=== PATIENT | female | born 1975 | race Caucasian/White ===

== ENCOUNTER 2023-05-13 08:34 | Outpatient (CLI) | payer OTHER, SELFPAY | END 2023-05-13 08:35 | disposition home or self-care (01) | PROVIDERS: PCP Physician Assistant Medical; Visit Provider Physician Assistant Medical | DX: M54.9 Dorsalgia, unspecified (principal); D50.9 Iron deficiency anemia, unspecified; M54.2 Cervicalgia | CPT/HCPCS: 82607; 84443 ==

== ENCOUNTER 2023-05-21 12:49 | Outpatient (CLI) | payer OTHER, SELFPAY ==
--- OUTSIDE RECORDS SUMMARY | 2023-05-21 12:53 | XMS_ITS | Clinical Summary ---
Author Name Unknown Organization [place] Address [address] [place] [address] Care Team Providers Care Bonding Agent Name Role Phone Robel Shah MD Unavailable Herbert Gaitan MD Primary Care Provider [phone] Allergies Active Allergy Reactions Criticality Noted Date Comments Fish Oil 04/30/2020 Other reaction(s): itching Medications Medication Sig Dispensed Refills Start Date End Date Status Yywznksiju-CCAR-Jyxlx ine 50-300-40 MG CAPS Take 1 capsule by mouth 0 07/22/2020 Active cyclobenzaprine (FLEXERIL) 5 MG tablet Take 5 mg by mouth 3 times daily as needed for muscle spasms 0 Active citalopram (CELEXA) 20 MG tabletIndications:Epi sodic tension-type headache, not intractable Take 2 tablets (40 mg) by mouth daily 30 tablet 11 08/20/2020 Active Active Problems Problem Noted Date Diagnosed Date Episodic tension-type headache, not intractable 08/20/2020 Exercise-induced asthma 08/06/2020 Generalized anxiety disorder 08/06/2020 Major depression, single epi sode, in complete remission (H24) 08/06/2020 Family History Medical History Relation Comments Hypertension Mother Myocardial Infarction Mother Relation Status Comments Mother Social History Tobacco Use Types Packs/Day Years Used Date Smoking Tobacco: Every Day Cigarettes 0.5 Smokeless Tobacco: Never Alcohol Use Standard Drinks/Week Comments Yes 0 (1 standard drink = 0.6 oz pur e alcohol) AUDIT-C Answer Date Recorded Q1: How often do you have a drink containing alc ohol? 2-3 times a week 08/06/2020 Q2: How many drinks containi ng alcohol do you have on a typical day when you are drinking? 1 or 2 08/06/2020 Q3: How often do you have si x or more drinks on one occasion? Not asked 08/06/2020 Adolescent Education Answer Date Record ed Getting School Help Needed Not on file 01/31 Sex and Gender Information Value Date Recorded Sex Assigned at Not on file Gender Identity Not on file Sexual Orientation Not on file Last Filed Vital Signs Vital Sign Reading Time Taken Comments Blood Pressure 141/84 08/20/2020 10:42 AM CDT Pulse 68 08/20/2020 10:42 AM CDT Temperature - - Respiratory Rate - - Oxygen Saturation - - Inhaled Oxygen Concentration - - Weight 94.7 kg (208 lb 12.8 oz) 021 10:42 AM CDT Height 177.8 cm (5' 10) 08/20/2020 10: 42 AM CDT Body Mass Index 29.96 08/20/2020 10:42 AM CDT Plan of Treatment Health Maintenance Due Date Last Done Comments ADVANCE CARE PLANNING 1976 ANNUAL REVIEW OF HM ORDERS 1976 ASTHMA ACTION PLAN [address] COLONOGRAPHY 1976 DEPRESSION ACTION PLAN 1976 FIT 1976 FLEX SIG 1976 HEPATITIS B IMMUNIZATION (1 of 3 - 3-dose series) 1976 MAMMO SCREENING 1976 PHQ-9 1976 YEARLY PREVENTIVE VISIT 1976 sDNA (Cologuard) 1976 COVID-19 Vaccine (#1) 02/20/1977 Pneumococcal Vaccine: Pediatrics (0 to 5 Years) and At-Risk Patients (6 to 64 Years) (1 of 2 - PCV) 1982 COLONOSCOPY 1986 COLORECTAL CANCER SCREENING 1986 HIV SCREENING 08/22/1991 HEPATITIS C SCREENING 1994 DTAP/TDAP/TD IMMUNIZATION (1 - Tdap) 12/02/2002 12/01/2002 LIPID 2021 08/20/2016 INFLUENZA VACCINE (#1) 2023 HPV TEST 11/27/2024 11/28/2019, 07/2 , 08/20/2016, Additional history exists PAP 11/27/2024 11/28/2019, 08/20/2016 HPV IMMUNIZATION Aged Out No longer e ligible based on patient's age to complete this topic IPV IMMUNIZATION Aged Out No longer e ligible based on patient's age to complete this topic MENINGITIS IMMUNIZATION Aged Out No l onger eligible based on patient's age to complete this topic RSV MONOCLONAL ANTIBODY Aged Out No l onger eligible based on patient's age to complete this topic Care Teams Bonding Agent Relationship Specialty Start Date End Date Herbert Gaitan MD [address] [place] [address] PCP - General Family Medicine 08/06/20 Robel Shah MD [address] [facility] [address] [place], [place] [id number] Neurology 08/06/20
--- OUTSIDE RECORDS SUMMARY | 2023-05-21 12:53 | XMS_ITS | Patient Health Record ---
Author Name Unknown Organization [facility] Address [address] [facility] [address] [place], [place] [id number] Care Team Providers Care Mechanism Inspector Name Role Phone Herbert Gaitan MD Primary Care Provider ALLERGIES Allergen (clinical drug ingredient) Drug/Non Drug Allergy documented on EMR Reaction Allergy Type Onset Date Status Fish derivative (substance) Fish-derived Products itching Drug Allergy Active REASON FOR REFERRAL No Information MEDICATIONS Medication SIG (Take, Route, Frequency, Duration) Notes Start Date End Date Status Varenicline Tartrate (Starter) 0.5 MG X 11 & 1 MG X 42 as directed Orally 06/19/2022 Active Citalopram Hydrobromide 20 MG 1 tablet Orally Once a day for 90 days 06/19/2022 Active IMMUNIZATIONS Vaccine Route Administration Date Status Comme nts Td (7 yrs and Older) Unknown 12/01/2002 Administered Tdap (Adacel 11-64 yrs) IM Intramuscular 03/24/2013 Admini stered SOCIAL HISTORY Tobacco Use: Social History Observation Description Date Details (start date - stop date) Current Smoker NA - NA Sex Assigned At : Social History Observation Description Sex Assigned At Unknown Alcohol Screen Question Answer Notes Did you have a drink contain ing alcohol in the past year? Yes How often did you have a dri nk containing alcohol in the past year? Two to three times per week (3 points) How many drinks did you have on a typical day when you were drinking in the past year? 1 or 2 (0 points) How often did you have six o r more drinks on one occasion in the past year? Never (0 points) Points 3 Interpretation Positive Tobacco Status Question Answer Notes I am: current every day smoker 5-10 ci garettes daily PROBLEMS Problem Type ICD Code Onset Dates Problem Status W/U Status Risk SNOMED Code Notes Problem Palpitations (R00.2) Active confirmed 55834812 Problem Depression, major, recurrent, mild (F33.0) Active confirmed 651618464 Problem Tobacco abuse (Z72.0) Active confirmed 166911756 Problem Exercise-induced asthma (J45.990) Active confirmed 08673905 Problem Major depressive disorder, single episode in full remission (F32.5) Active confirmed 56007042 Problem Anisocoria (H57.02) Active confirmed 53685725 Problem Unspecified asthma, uncomplicated (J45.909) Active confirmed Uncomplicated asthma (disorder) (230178002) Problem Abnormal vaginal bleeding (N93.9) Active confirmed 623251017 Problem GENNA (generalized anxiety disorder) (F41.1) Active confirmed 61034627 Problem Mild intermittent asthma without complication (J45.20) Active confirmed 108719657 Problem terminal operations manager current use of inhaled steroid (Z79.51) Active confirmed Long-term current use of inhaled steroid (363636215) VITAL SIGNS Oximetry 99% 06/19/2022 Blood pressure diastolic 72 mm Hg 06/19/2022 Height 69.5 in 06/19/2022 Blood pressure systolic 134 mm Hg 06/19/2022 Weight 216.4 lbs 06/19/2022 BMI 31.5 kg/m2 06/19/2022 Encounters Encounter Location Date Provider Diagnosis [facility] [address] [facility] [place], [place] [id number] 06/19/2022 Herbert Gaitan Tobacco abuse Z72.0 [facility] [address] [place], [place] [id number] 06/20/2022 Herbert Gaitan [facility] [address] [place], [place] [id number] 08/13/2022 Herbert [facility] [address] [facility] [place], [place] [id number] 05/18/2023 Herbert Gaitan [facility] [address] [place], [place] [id number] [facility] [address] [place], [place] [id number] 01/13/2023 Herbert Gaitan [facility] [address] [facility] [place], [place] [id number] 12/18/2022 Herbert Gaitan [facility] [address] [facility] [place], [place] [id number] 01/14/2023 Herbert Gaitan [facility] [address] [facility] [place], [place] [id number] 02/20/2023 Herbert Gaitan [facility] [address] [facility] [place] [id number] 06/19/2022 Herbert Gaitan Adult general medical exam Z00.00 ; GENNA (generalized anxiety disorder) F41.1 ; Depression, major, recurrent, mild F33.0 ; Tobacco abuse Z72.0 and Mild intermittent asthma without complication J45.20 ASSESSMENTS Encounter Date Diagnosis Assessment Notes Treatment Notes Treatment Clinical Notes 06/19/2022 GENNA (generalized anxiety disorder) (ICD-10 - F41.1) In the past she has used citalopram very successfully. She had weaned off it because she did not feel like she needed it. She thinks she like to restart it at the 20 mg she was on before. She had no side effects from it and did quite well. I am fine with that I told her that she to consider counseling also. 06/19/2022 Adult general medical exam (ICD-10 - Z00.00) 06/19/2022 Tobacco abuse (ICD-10 - Z72.0) 06/19/2022 Depression, major, recurrent, mild (ICD-10 - F33.0) I suspect this is less about major depressive disorder and more about adjustment. Given everything she has been through this not terribly surprising. The citalopram should help with this also. We will have the body care manager call in 6 weeks. 06/19/2022 Tobacco abuse (ICD-10 - Z72.0) She asked about Chantix. We talked about the pros cons and side effects. We talked about how it works. She would like to start. I told her to pick a quit date and start the Chantix 3 days before. Prescription given. I told her not to quit too soon and she can be on it as long as she needs to be on it. 06/19/2022 Mild intermittent asthma without complication (ICD-10 - J45.20) Asthma control is very good. Plan is to continue on the current inhalers. We will refill prescriptions on an as-needed basis and follow will be in 6 months. In the meantime if there are exacerbations or if the rescue inhaler needs to be used more than 3 times a week over 2 weeks then it's time to come in and recheck. PLAN OF TREATMENT No Information Insurance Providers Payer Name Payer Address Payer Phone Subscriber Number Group Number Insured Name Patient Relationship to Insured Coverage Start Date Coverage End Date 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
--- OUTSIDE RECORDS SUMMARY | 2023-05-21 12:53 | XMS_ITS | Referral Summary ---
Author Name Unknown Organization [place] Address [address] [place] [address] Care Team Providers Care Director Writing Name Role Phone Robel Shah MD Unavailable Herbert Gaitan MD Primary Care Provider [phone] Allergies Active Allergy Reactions Criticality Noted Date Comments Fish Oil 04/30/2020 Other reaction(s): itching Medications Medication Sig Dispensed Refills Start Date End Date Status Jfplnctypq-TBVR-Vmjmg ine 50-300-40 MG CAPS Take 1 capsule [...] epi sode, in complete remission (H24) 08/06/2020 Social History Tobacco Use Types Packs/Day Years [...] 08/20/2020 10:42 AM CDT Plan of Treatment Not on file Care Teams Director Writing Relationship Specialty Start Date End Date Herbert Gaitan MD [address] [place] [address] PCP - General Family Medicine 08/06/20 Robel Shah MD [address] [place] [address] [place] [address] Neurology 08/06/20
--- OUTSIDE RECORDS SUMMARY | 2023-05-21 12:53 | XMS_ITS | Clinical Summary ---
Author Name Unknown Organization [facility] Address [address] [place] [address] Care Team Providers Care Unit Aide Tech Name Role Phone Elsewhere, Pcp Primary Care Provider Unavailabl e Source Comments Patient records contain information from all sites at [facility]. For routine questions regarding patient records, call [phone] during business hours, M-F 8:00 AM - 5:00 PM Central Time. Record requests for emergency care only can be directed to [phone] at any time.[facility] Allergies No known active allergies Medications Medication Sig Dispensed Refills Start Date End Date Status citalopram hydrobromide (CITALOPRAM ORAL) Take 20 mg by mouth daily. 0 Active melatonin 1 mg tablet Take 1 mg by mouth at bedtime as needed for sleep. 0 Active butalbital-acetamino phen-caff (FIORICET) 50-300-40 mg per capsuleIndications:A cute Pain Take 1 capsule by mouth every 4 (four) hours as needed for headaches Indication: acute pain. 12 capsule 0 07/22/2020 Active cyclobenzaprine (FLEXERIL) 10 mg tablet Take 1 tablet (10 mg total) by mouth 3 (three) times a day as needed for muscle spasms. 15 tablet 0 10/08/2022 Active Active Problems Problem Noted Date Diagnosed Date Episodic Tension Type Headache Not Intractable 0 08/20/2020 10/08/2022 Anxiety Generalized Disorder 08/06/2020 Asthma Exercise Induced Bronchospasm 08/06/2020 10/08/2022 Depression Major One Episode Full Remission 07/1010/08/2022 Social History Tobacco Use Types Packs/Day Years Used Date Smoking Tobacco: Every Day Cigarettes Smokeless Tobacco: Never Nutrition Answer Date Recorded Nutrition: EVOO Fat Source Unknown 07/22 Nutrition: Servings of Fruits/Vegetables per Day Not on file 07/22/2020 Dental Answer Date Recorded Dental: Regular Dentist Unknown 07/23/19 21 Sex and Gender Information Value Date Recorded Sex Assigned at Not on file Gender Identity Not on file Sexual Orientation Not on file Last Filed Vital Signs Vital Sign Reading Time Taken Comments Blood Pressure 119/63 10/08/2022 11:17 PM CDT Pulse 72 10/08/2022 11:17 PM CDT Temperature 36 ??C (96.8 ??F) 10/08/2022 9:13 PM CDT Respiratory Rate 16 10/08/2022 11:17 PM CDT Oxygen Saturation 97% 10/08/2022 11:17 PM CDT Inhaled Oxygen Concentration - - Weight 96.4 kg (212 lb 8.4 oz) 10/08/2022 9:14 P M CDT Height - - Body Mass Index - - Plan of Treatment Health Maintenance Due Date Last Done Comments CT Colonography 1976 Cervical Cancer Screening 1976 Cologuard 1976 Colonoscopy 1976 Colorectal Cancer Screening 1976 Depression Monitoring (PHQ-9) 1976 FIT 1976 HIV Screening 1976 Hepatitis B Vaccines (1 of 3 - 3-dose series) 1976 Hepatitis C Screening 1976 Lipid (Cholesterol) Screening 1976 Mammogram 1976 Tobacco Cessation counseling 1976 COVID-19 Vaccine (#1) 02/20/1977 Pneumococcal vaccine (0-64 y ears) (1 of 2 - PCV) 1982 Asthma Action Plan 10/08/2022 Asthma Control Test Questionnaire 10/08/2022 Influenza Vaccine (#1) 2023 DTaP,Tdap,and Td Vaccines (2 - Td or Tdap) 03/24/2023 03/24/2013, 12/01/2002 Fasting Glucose for Diabetes Screening 10/08/2025 Care Teams Unit Aide Tech Relationship Specialty Start Date End Date Elsewhere, Pcp PCP - General Internal Medicine 10/08/22
--- OUTSIDE RECORDS SUMMARY | 2023-05-21 12:53 | XMS_ITS ---
Author Name Unknown Organization [facility] Address [address] [place] [address] Care Team Providers Care Network/Telecom Engineer Name Role Phone Unavailable Unavailable Unavailable Surgery Details Not on file Complications Check Surgery Details section. Procedure Estimated Blood Loss Check Surgery Details section. Procedure Findings Check Surgery Details section. Procedure Specimens Taken Check Surgery Details section.
--- OUTSIDE RECORDS SUMMARY | 2023-05-21 12:53 | XMS_ITS | Encounter Summary ---
Author Name Unknown Organization [facility] Address [address] [place] [address] Care Team Providers Care Longwall Foreman Name Role Phone Elsewhere, Pcp Primary Care Provider Unavailabl e Reason for Referral * Outpatient (Routine) - Authorized Specialty Diagnoses / Procedures Referred By Naveen gilliam Referred To Contact Emergency Medicine Diagnoses Strain Back Muscle Initial Palpitations Anemia Chato Ferguson P.A.-C. [address] [place] [phone] [facility] Referral ID Status Reason Start Date Expiration Date V isits Requested Visits Authorized [id number] Authorized 10/08/2022 10/07/2025 1 1 Reason for Visit * Reason Comments Shoulder Pain Pt comes in for eval uation of right shoulder, right arm pain, and right sided upper back pain. She is concerned because her mom had a heart attack. She denies chest pain, but states it feels like her heart is racing. Encounter Details Date Type Department Care Team (Late Contact Info) Description 10/08/2022 9:10 PM CDT - 10/08/2022 11:51 PM CDT Emergency [facility] [address] [place] [phone] Chato Ferguson P.A.-C. [address] [place] [phone] Strain Back Muscle Initial (Primary Dx); Palpitations; Anemia Discharge Disposition: Home or Self Care Social History Tobacco Use Types Packs/Day Years [...] on file Sexual Orientation Not on file documented as of this encounter Last Filed Vital Signs Vital Sign Reading [...] - - Body Mass Index - - documented in this encounter Discharge Instructions * Discharge Instructions* Chato Ferguson P.A.-C. - 10/08/2022 11:28 PM CDT Tylenol 1000 mg every 6 hours as needed for pain. Ibuprofen 600 mg every 6 hours as needed for pain. Please take with food. Do not exceed 4000 mg of Tylenol daily. Do not exceed 2400 mg of Ibuprofen daily. Take Lidocaine patch off in 12 hours. Obtain additional Lidocaine patches [id number]-[id number] that last 8 hours. Rotating Ice and Heat when you do not have lidocaine patch on. Flexeril as needed for muscle relaxant properties Follow up with primary care in 2 weeks or so, referral placed. Return to Emergency Department for any new or worsening symptoms as discussed in addition to following up with primary care as directed. * Attachments The following attachments cannot be sent through Care Everywhere. * Muscle Strain Slwt-vp-Owdh (Moldovan) * Palpitations Uape-yl-Quxa (Moldovan) * Iron Deficiency Anemia (Moldovan) documented in this encounter Medications at Time of Discharge Medication Sig Dispensed Refills Start Date End Date butalbital-acetaminophen -caff (FIORICET) 50-300-40 mg per capsuleIndications:Acute Pain Take 1 capsule by mouth every 4 (four) hours as needed for headaches Indication: acute pain. 12 capsule 0 07/22/2020 citalopram hydrobromide (CITALOPRAM ORAL) Take 20 mg by mouth daily. 0 cyclobenzaprine (FLEXERIL) 10 mg tablet Take 1 tablet (10 mg total) by mouth 3 (three) times a day as needed for muscle spasms. 15 tablet 0 10/08/2022 melatonin 1 mg tablet Take 1 mg by mouth at bedtime as needed for sleep. 0 documented as of this encounter ED Notes * Chato Ferguson P.A.-C. - 10/08/2022 9:09 PM CDT SUBJECTIVE CHIEF COMPLAINT/REASON FOR VISIT Shoulder Pain (Pt comes in for evaluation of right shoulder, right arm pain, and right sided upper back pain. She is concerned because her mom had a heart attack. She denies chest pain, but states itfeels like her heart is racing.) HISTORY OF PRESENT ILLNESS Candy Mckenzie is a 47 y.o. female presents to [facility] requesting evaluationfor back pain. Presents via private vehicle with . Patient ambulatory. Past medical history notable for but not limited to anxiety, asthma, depression, episodic tension headaches. Patient notes that for the past 2 days she is had some pain in her right upper back just medial to shoulder blade which is worsened with movement but has also been constant and having some referred pain down into right arm most prominent on right posterior aspect of right arm. Notes that she was out doing some yard work extreme yard about 1 hour ago and began feeling short of breath, feeling palpitations in her mid chest and with this back pain and referred pain down right arm she proceeded to come to ED for evaluation. Patient notes that her mother had similar symptoms which she had an [place]. No cough. No hemoptysis. No recent illness. No trauma or falls. No diaphoresis, nausea, vomiting, abdominal pain. No lower extremity edema. No history DVT or PE. No recent surgery or prolonged immobilization. History provided by: Patient and medical records certified court interpreter needed/used: no REVIEW OF SYSTEMS Constitutional: Negative for chills, diaphoresis, fatigue and fever. HENT: Negative for ear pain and sore throat. Eyes: Negative for visual disturbance. Respiratory: Positive for shortness of breath. Negative for cough and hemoptysis. Cardiovascular: Positive for palpitations. Negative for chest pain and leg swelling. Gastrointestinal: Negative for abdominal pain, blood in stool and vomiting. Genitourinary: Negative for dysuria and hematuria. Musculoskeletal: Positive for back pain. Patient denies any new or worsening joint/muscle pain Skin: Negative for rash. Neurological: Negative for dizziness, syncope and headaches. OBJECTIVE Initial Vitals Temperature 10/08/222112 36 ??C Pulse Rate 10/08/222112 80 Heart Rate -- Resp Rate 10/08/222112 16 Blood Pressure 10/08/222112 (!) 163/86 SpO2 10/08/222112 97 % Pain Score 10/08/222113 3 PHYSICAL EXAMINATION Constitutional: Nursing note and vitals reviewed. She appears not lethargic. No distress. HENT: Head: Normocephalic and atraumatic. No signs of injury. Nose: Nose normal. Mouth/Throat: Oropharynx is clear and moist. Mucous membranes are moist. Eyes: Conjunctivae and EOM are normal. Pupils are equal, round, and reactive to light. Cardiovascular: Normal rate. Capillary refill: takes less than 3 secondsEdema: no edema noted Pulmonary/Chest: Effort normal and breath sounds normal. There is normal air entry. No tachypnea. No respiratory distress. She has no wheezes. She has no rhonchi. Abdominal: Soft. exhibits no distension and no mass. There is no abdominal tenderness. There is no rebound and no guarding. Musculoskeletal: General: Tenderness (tenderness medial to right scapula over rhomboids) present. No deformity. Normal range of motion. Cervical back: Normal range of motion. Neurological: Alert and oriented to person, place, and time. She is not disoriented. She exhibits normal muscle tone. Coordination normal. Skin: Skin is warm, dry and normal color. She is not diaphoretic. Psychiatric: She has a normal mood and affect. Behavior is normal. ASSESSMENT/PLAN Assessment and Plan The patient presents to the ED for evaluation of back pain, palpitations. DISPOSITION: Patient is awake, alert, oriented and appropriate to questions who is nontoxic or ill-appearing. Initial presentation to ED notable for an afebrile 47-year-old female with vital signs notable for hypertension to 163/86 with otherwise normal vital signs. Secondary to patient who has had 2 days of right posterior back pain with some referred pain down right arm now with some sudden shortness of breath and palpitations and mid chest about 1 hour prior to arrival a plan was made to proceed with baseline labs, troponin evaluation, EKG and chest x-ray. Patient is PERC and Wells PE negative, deferring dimer and further PE workup at this time. Plan to administer full-dose cardiac load aspirin. Tylenol ordered for pain. Lidocaine patch ordered for pain. See ED Course for diagnostics, disposition and further medical decision making.. DIFFERENTIAL DIAGNOSES Muscle strain, muscle spasm, pinched nerve, pneumothorax, ACS, arrhythmia, anxiety, PE, pleurisy, costochondritis. HEART Pathway Score Does this patient have STEMI, ischemic ECG changes, coronary artery disease?: No Age: 45-64 Age Score: 1 Symptoms: Pain is pinpoint/well localized, Radiation to arms/jaw/neck, No Nausea or vomiting, No Diaphoresis Symptoms Score: 0 Risk Factors: BMI > 30 kg/m2 Risk Factors Score: 1 ECG: ECG normal ECG Score: 0 HEART Pathway Score: 2 Pulmonary Embolism Risk Trauma or surgery within 4 weeks: No Hemoptysis: No Unilateral leg swelling: No PE is #1 diagnosis, or equally likely: No Age >=50: No Heart rate >=100: No O2 saturation on room air <95%: No Prior history of venous thromboembolism: No Exogenous estrogen: No Active cancer diagnosis: No : No Currently anticoagulated: No Wells' Score: 0 PERC Rule: 0 ED Course as of 10/08/222348October 08, 20222118 ECG 12 Lead Independent interpretation, normal sinus rhythm without any ST elevation or depression or ischemic T-wave changes. 2156 Hemoglobin(!): 10.3 No recent comparison, MCV is low, likely iron deficiency anemia. 2156 Troponin T, Baseline, 5th gen: 7 Based on timeline of symptoms patient will require 2 hour troponin. 2205 Potassium, P: 3.8 5 Creatinine: 0.90 2250 DX Chest Portable 1 View IMPRESSION: No pneumothorax, focal consolidation or pleural effusion. Normal heart size. Aortic calcification. 2340 Troponin T, 2 hr, 5th gen: <6 2340 2H Delta: -2 2341 Referral placed to primary care for follow-up in around 2 weeks. Recommend conservative qihc-wpz-gysaste therapy including Tylenol, ibuprofen, rotating heat nice, lidocaine patches. Flexeril prescribed for as needed use for muscle relaxant properties. I encourage follow up with their primary care provider as indicated. I also encourage to return emergency department for worsening symptoms or any other concerns that they feels requires further evaluation. This plan of discharge and follow-up including all test results was discussed in detail withopportunity to ask questions during discharge process. At this time there no further questions regarding this plan and discussion. I will discharge them home in stable condition. Final Diagnoses: as of 10/08/222348 Strain Back Muscle Initial Palpitations Anemia - Likley iron deficiency anemia Chato Ferguson, P.A.-C. 10/08/222348 documented in this encounter Plan of Treatment Scheduled Referrals Name Type Priority Associated Diagnoses Orde r Schedule POST ED VISIT Family Medicine Outpatient Referral Routine Strain Back Muscle Initial Palpitations Anemia Expected: 10/22/2022 (Approximate), Expires: 01/09/2024 documented as of this encounter Procedures Procedure Name Priority Date/Time Associated Diagnosis Comments TROPONIN T, 2H/6H, 5TH GEN, P Timed 10/08/2022 11:14 PM CDT DX CHEST PORTABLE 1 VIEW RAD - Semiurgent (Fast; most ED patients; some inpatients) 10/08/2022 9:36 PM CDT MORPHOLOGY EVALUATION STAT 10/08/2022 9:24 PM CDT TROPONIN T, BASELINE, 5TH GEN, P STAT 10/08/2022 9:24 PM CDT CBC WITH DIFFERENTIAL, B STAT 10/08/2022 9:24 PM CDT COMPREHENSIVE METABOLIC PANEL, S/P STAT 10/08/2022 9:24 PM CDT ECG STAT 10/08/2022 9:17 PM CDT documented in this encounter Results * Troponin T, 2h/6h, 5th Gen (10/08/2022 11:14 PM CDT) Troponin T, 2 hr, 5th gen <6 <=10 ng/L 10/08/2022 11:38 PM CDT CNFL 2H Delta -2 ng/L 10/08/2022 11:38 PM CDT CNFL 2H Delta Interp Not Changing 10/08/2022 11:38 PM CDT CNFL Troponin T, 6 hr, 5th gen CANCELED ng/L 10/08/2022 11:38 PM CDT CNFL Comment:Result canceled by t he ancillary. 6H Delta CANCELED ng/L 10/08/2022 11:38 PM CDT CNFL Comment:Result canceled by t he ancillary. 6H Delta % CANCELED % 10/08/2022 11:38 PM CDT CNFL Comment:Result canceled by t he ancillary. Blood (Blood, Venous) 10/08/2022 11:14 PM CDT 10/08/2022 11:17 PM CDT Narrative [facility] - 10/08/2022 11:38 PM CDT Specimen Information: Specimen ID: [id number] Specimen Type: Blood Specimen Collection Start Date: 10/08/2022 11:14 PM Specimen Received Date: 10/08/2022 11:17 PM Specimen ID: [id number] Specimen Type: Blood Chato Ferguson P.A.-C. LAB BLOOD TROPONIN [facility] [address] [place] [id number], [facility] in [address] [address] * DX Chest Portable 1 View (10/08/2022 9:36 PM CDT) Anatomical Region Laterality Modality Chest, Thoracic RST LOS, Tho racic ARZ LOS, Thoracic FLA LOS N/A Computed Radiography 10/08/2022 9:56 PM CDT Impressions 10/08/2022 9:57 PM CDT No pneumothorax, focal consolidation or pleural effusion. Normal heart size. Aortic calcification. Narrative 10/08/2022 9:57 PM CDT EXAM: DX CHEST PORTABLE 1 VIEW Procedure Note Felipe Stein M.D. - 10/08/2022 EXAM: DX CHEST PORTABLE 1 VIEW IMPRESSION: No pneumothorax, focal consolidation or pleural effusion. Normal heartsize. Aortic calcification. Chato Ferguson P.A.-C. IMG DIAGNOSTIC TUYET GING PROCEDURES * (ABNORMAL) Morphology Evaluation (10/08/2022 9:24 PM CDT) RBC Morphology See Specific Findings 10/08/2022 9:59 PM CDT CNFL PLT Morphology Normal 10/08/2022 9:59 PM CDT CNFL PLT Estimate Adequate Adequate 10/08/2022 9:59 PM CDT CNFL Hypochromia Moderate(A) Not Seen 10/08/2022 9:59 PM CDT CNFL Microcytosis Marked(A) Not Seen 10/08/2022 9:59 PM CDT CNFL Blood 10/08/2022 9:24 PM CDT 10/08/2022 9:26 PM CDT Chato Ferguson P.A.-C. LAB BLOOD ADD-ON [facility] [address] [place] [phone], [facility] CNFL [facility] in [address] [address] * Troponin T, Baseline, 5th gen (10/08/2022 9:24 PM CDT) Troponin T, Baseline, 5th gen 7 <=10 ng/L 10/08/2022 9:47 PM CDT CNFL Blood (Blood, Venous) 10/08/2022 9:24 PM CDT 10/08/2022 9:26 PM CDT Chato Ferguson P.A.-C. LAB BLOOD TROPONIN [facility] [address] [place] [id number], [facility] CNFL [facility] [place] [address] * (ABNORMAL) Comprehensive Metabolic Panel (10/08/2022 9:24 PM CDT) Potassium, P 3.8 3.6 - 5.2 mmol/L 10/08/2022 9:44 PM CDT CNFL Sodium, P 135 135 - 145 mmol/L 10/08/2022 9:44 PM CDT CNFL Chloride, P 103 98 - 107 mmol/L 10/08/2022 9:44 PM CDT CNFL Bicarbonate, P 21(L) 22 - 29 mmol/L 10/08/2022 9:44 PM CDT CNFL Anion Gap, P 11 7 - 15 10/08/2022 9:44 PM CDT CNFL BUN (Blood Urea Nitrogen), P 14 6 - 21 mg/dL 10/08/2022 9:44 PM CDT CNFL Creatinine 0.90 0.59 - 1.04 mg/dL 10/08/2022 9:44 PM CDT CNFL Estimated GFR (eGFR) 80 >=60 mL/min/BS A 10/08/2022 9:44 PM CDT CNFL Comment: Estimated GFR calculated using the 2020 CKD_EPI creatinine equation. Calcium, Total, P 9.4 8.6 - 10.0 mg/dL 10/08/2022 9:44 PM CDT CNFL Glucose, P 112 70 - 140 mg/dL 10/08/2022 9:44 PM CDT CNFL Protein, Total, P 6.5 6.3 - 7.9 g/dL 10/08/2022 9:44 PM CDT CNFL Albumin, P 4.1 3.5 - 5.0 g/dL 10/08/2022 9:44 PM CDT CNFL Aspartate Aminotransferase (AST), P 17 8 - 43 U/L 10/08/2022 9:44 PM CDT CNFL Alkaline Phosphatase, P 62 35 - 104 U/L 10/08/2022 9:44 PM CDT CNFL Alanine Aminotransferase (ALT), P 15 7 - 45 U/L 10/08/2022 9:44 PM CDT CNFL Bilirubin, Total, P <0.2 <=1.2 mg/dL 10/08/2022 9:44 PM CDT CNFL Blood (Blood, Venous) 10/08/2022 9:24 PM CDT 10/08/2022 9:26 PM CDT Chato Ferguson P.A.-C. LAB BLOOD ADD-ON [facility] [address] [place] [address], [facility] CNFL [facility] [place] [address] * (ABNORMAL) CBC with Differential, Blood (10/08/2022 9:24 PM CDT) Hemoglobin 10.3(L) 11.6 - 15.0 g/dL 10/08/2022 9:38 PM CDT CNFL Hematocrit 33.1(L) 35.5 - 44.9 % 10/08/2022 9:38 PM CDT CNFL Erythrocytes 4.86 3.92 - 5.13 x10(12)/L 10/08/2022 9:38 PM CDT CNFL MCV 68.1(L) 78.2 - 97.9 fL 10/08/2022 9:38 PM CDT CNFL RBC Distrib Width 16.8(H) 12.2 - 16.1 % 10/08/2022 9:38 PM CDT CNFL Platelet Count 217 157 - 371 x10(9)/L 10/08/2022 9:38 PM CDT CNFL Leukocytes 6.5 3.4 - 9.6 x10(9)/L 10/08/2022 9:38 PM CDT CNFL Neutrophils 4.21 1.56 - 6.45 x10(9)/L 10/08/2022 9:59 PM CDT CNFL Lymphocytes 1.45 0.95 - 3.07 x10(9)/L 10/08/2022 9:59 PM CDT CNFL Monocytes 0.43 0.26 - 0.81 x10(9)/L 10/08/2022 9:59 PM CDT CNFL Eosinophils 0.37 0.03 - 0.48 x10(9)/L 10/08/2022 9:59 PM CDT CNFL Basophils 0.07 0.01 - 0.08 x10(9)/L 10/08/2022 9:59 PM CDT CNFL Blood (Blood, Venous) 10/08/2022 9:24 PM CDT 10/08/2022 9:26 PM CDT Chato Ferguson P.A.-C. LAB BLOOD ADD-ON Performing Organization Address City/State/[facility] Co de Phone Number [facility] [address] [place] [phone], [facility] in [address] [address] * ECG 12 Lead (10/08/2022 9:17 PM CDT) Ventricular Rate ECG/Min 72 BPM MUSE NH Interval 114 ms MUSE QRSD Interval 82 ms MUSE QT Interval 382 ms MUSE QTC Interval 418 ms MUSE P [place] -6 degrees MUSE R [place] 59 degrees MUSE T Wave [place] 14 degrees MUSE 10/08/2022 9:17 PM CDT 10/09/2022 9:22 AM CDT Impressions MUSE - 10/08/2022 9:19 PM CDT Normal sinus rhythm with short NH Nonspecific T wave abnormality No previous ECGs available Reviewed by Rome Hargrove III, CRAT Narrative Procedure Note Jn Chun M.D. - 10/09/2022 IMPRESSION: Normal sinus rhythm with short NH Nonspecific T wave abnormality No previous ECGs available Reviewed by Rome Hargrove III, CRAT Chato J Kriett P.A.-C. ECG ORDERABLES MUSE NA documented in this encounter Visit Diagnoses Diagnosis Strain Back Muscle Initial- Primary Palpitations Anemia documented in this encounter Administered Medications Inactive Administered Medications - up to 3 most recent administrations Medication Order MAR Action Action Date Dose Rate Site acetaminophen tablet 1,000 mg (TYLENOL) 1,000 mg, oral, Once, On Thu10/08/22 at 2115, For 1 dose Given 10/08/2022 9:35 PM CDT 1,000 mg aspirin chewable tablet 324 mg 324 mg, oral, Once, On Thu10/08/22 at 2115, For 1 dose Given 10/08/2022 9:35 PM CDT 324 mg lidocaine 5 % 1 patch (LIDODERM) 1 patch, transdermal, Administer over 12 Hours, Once, On Thu10/08/22 at 2115, For 1 dose, Remove after 12 hours. Medication Applied 10/08/2022 9:36 PM CDT 1 patch Upper Back documented in this encounter Active and Recently Administered Medications Times are shown in CDT. Scheduled Medication Order 10/06/2022 10/07/2022 10/08/2022 acetaminophen tablet 1,000 mg (TYLENOL) (COMPLETED) 1,000 mg, oral, Once, On Thu10/08/22 at 2115, For 1 dose 2134 (Given - Provid er: Phillip Ruano R.N.) aspirin chewable tablet 324 mg (COMPLETED) 324 mg, oral, Once, On Thu10/08/22 at 2115, For 1 dose 2134 (Given - Provid er: Phillip Ruano R.N.) lidocaine 5 % 1 patch (LIDODERM) 1 patch, transdermal, Administer over 12 Hours, Once, On Thu10/08/22 at 2115, For 1 dose, Remove after 12 hours. 2135 (Medication Eleazar lied - Provider: Phillip Ruano R.N.)2351 (Due: Medication Removed - Provider: Discharge Provider, Automatic - Comment: Time automatically adjusted from order being discontinued) documented in this encounter Care Teams Longwall Foreman Relationship Specialty Start Date End Date Elsewhere, Pcp PCP - General Internal Medicine 10/08/22 documented as of this encounter
--- OUTSIDE RECORDS SUMMARY | 2023-05-21 12:53 | XMS_ITS | Referral Summary ---
Author Name Unknown Organization [facility] Address [address] [place] [address] Care Team Providers Care Senior Production Planner Name Role Phone Elsewhere, Pcp Primary Care Provider Unavailabl e Source Comments Patient records contain information from all sites at [facility]. For routine questions regarding patient records, call [phone] during business hours, M-F 8:00 AM - 5:00 PM Central Time. Record requests for emergency care only can be directed to [phone] at any time.[facility] Allergies No known active allergies Medications [...] Mass Index - - Plan of Treatment Not on file Care Teams Senior Production Planner Relationship Specialty Start Date End Date Elsewhere, Pcp PCP - General Internal Medicine 10/08/22
--- NOTE | 2023-05-21 13:00 | CRLHL7_ITS ---
For Patients: As a result of the Century Cures Act, medical imaging exams and procedure reports are released immediately into your electronic medical record. You may view this report before your referring provider. If you have questions, please contact your health care provider. INDICATION: Heavy menses. Anemia. TECHNIQUE: Transabdominal and transvaginal scanning was performed. Transvaginal scanning was performed to optimally evaluate the endometrium and adnexa. Ovarian blood flow was evaluated with color-flow and pulsed Doppler. COMPARISON: None. FINDINGS: The uterus is mildly enlarged. A scar is noted. The uterus measures 10.7 x 4.9 x 7.1 cm. No uterine mass is evident. The endometrial stripe is normal in thickness at 12 mm. A left ovarian corpus luteum is noted. The right ovary measures 2.2 x 1.3 x 1.3 cm and left 3.2 x 2.3 x 2.0 cm. Ovarian blood flow is demonstrated with color-flow and pulsed Doppler. No adnexal mass is evident. No free fluid is demonstrated. IMPRESSION: 1. Normal-thickness endometrial stripe at 12 mm. 2. Mildly enlarged uterus with scar. Dictated by Glen Palomares MD @ 05/22/2023 12:39:16 PM (Electronically Signed)
== END 2023-05-21 12:50 | disposition home or self-care (01) ==
LOC: US 12:51
PROVIDERS: PCP Physician Assistant Medical; Visit Provider Physician Assistant Medical
DX: N92.0 Excessive and frequent menstruation with regular cycle (principal); N85.2 Hypertrophy of uterus; D50.0 Iron deficiency anemia secondary to blood loss (chronic)
CPT/HCPCS: 76830; 76856

== ENCOUNTER 2023-06-05 08:40 | Outpatient (CLI) | payer OTHER, SELFPAY ==
--- NOTE | 2023-06-05 08:45 | CRLHL7_ITS ---
For Patients: As a result of the Century Cures Act, medical imaging exams and procedure reports are released immediately into your electronic medical record. You may view this report before your referring provider. If you have questions, please contact your health care provider. BILATERAL DIGITAL SCREENING MAMMOGRAM WITH TOMOSYNTHESIS AND COMPUTER-AIDED DETECTION CLINICAL HISTORY: Routine screening exam. COMPARISON: None. TECHNIQUE: Digital mammogram in CC and MLO projections including computer-aided detection (CAD). Tomosynthesis utilized. BREAST COMPOSITION: There are areas of scattered fibroglandular density. FINDINGS: RIGHT Breast: Focal asymmetric density upper outer quadrant 7 cm from the nipple. LEFT Breast: No suspicious findings. IMPRESSION: RIGHT breast asymmetry/mass. RECOMMENDATIONS: Additional mammographic views of the RIGHT breast including 3D spot compression CC/MLO. RIGHT breast ultrasound may also be required. BI-RADS Category 0: Incomplete: Need Additional Imaging Evaluation and/or Prior Mammograms for Comparison The [facility] will contact the patient for follow-up. A lay language report of this examination will be provided to the patient. Dictated by Albaro Brewer MD @ 06/05/2023 9:32:00 AM jj/Dictated by: Albaro Brewer MD @ 06/05/2023 9:31:00 AM (Electronically Signed)
--- OUTSIDE RECORDS SUMMARY | 2023-06-05 08:48 | XMS_ITS | Clinical Summary ---
Author Name Unknown Organization [facility] Address [address] [place] [address] Care Team Providers Care Textile Coating Machine Operator Name Role Phone Elsewhere, Pcp Primary Care Provider Unavailabl e Source Comments Patient records contain information from all sites at [facility]. For routine questions regarding patient records, call [phone] during business hours, M-F 8:00 AM - 5:00 PM Central Time. Record requests for emergency care only can be directed to [phone] at any time.[facility] Allergies No known active allergies Medications Medication [...] Glucose for Diabetes Screening 10/08/2025 Care Teams Textile Coating Machine Operator Relationship Specialty Start Date End Date Elsewhere, Pcp PCP - General Internal Medicine 10/08/22
--- OUTSIDE RECORDS SUMMARY | 2023-06-05 08:48 | XMS_ITS | Encounter Summary ---
Author Name Unknown Organization [facility] Address [address] [place] [address] Care Team Providers Care Shore Working Supervisor Name Role Phone Elsewhere, Pcp Primary Care Provider Unavailabl e Reason for Referral * Outpatient (Routine) - Authorized Specialty Diagnoses / Procedures Referred By Naveen gilliam Referred To Contact Emergency Medicine Diagnoses Strain Back Muscle Initial Palpitations Anemia Chato Ferguson P.A.-C. [address] [place] [phone] [facility] Referral ID Status Reason Start Date Expiration Date V isits Requested Visits Authorized [id number] Authorized 10/08/2022 10/07/2025 1 1 Reason for [...] CDT - 10/08/2022 11:51 PM CDT Emergency [facility] [address] [place] [phone] Chato Ferguson P.A.-C. [address] [place] [phone] Strain Back Muscle Initial (Primary Dx); Palpitations; [...] in 12 hours. Obtain additional Lidocaine patches walg-yvq-vxeqisy that last 8 hours. Rotating Ice and [...] sent through Care Everywhere. * Muscle Strain Mqqa-kd-Nbnh ([place] Citizen) * Palpitations Mpui-ny-Tvmd ([place] Citizen) * Iron Deficiency Anemia ([place] Citizen) documented in this encounter Medications at Time [...] is a 47 y.o. female presents to [facility] requesting evaluationfor back pain. Presents [...] had similar symptoms which she had an [place]. No cough. No hemoptysis. No recent illness. No trauma or falls. No diaphoresis, nausea, vomiting, abdominal pain. No lower extremity edema. No history DVT or PE. No recent surgery or prolonged immobilization. History provided by: Patient and medical records historical interpreter needed/used: no REVIEW OF SYSTEMS Constitutional: [...] follow-up in around 2 weeks. Recommend conservative geqc-owo-zeyawhm therapy including Tylenol, ibuprofen, rotating heat nice, [...] PM CDT 10/08/2022 11:17 PM CDT Narrative [facility] - 10/08/2022 11:38 PM CDT Specimen Information: Specimen ID: [id number] Specimen Type: Blood Specimen Collection Start Date: 10/08/2022 11:14 PM Specimen Received Date: 10/08/2022 11:17 PM Specimen ID: [id number] Specimen Type: Blood Chato Ferguson P.A.-C. LAB BLOOD TROPONIN [facility] [address] [place] [address], [facility] in [address] [address] * DX Chest Portable 1 View (10/08/2022 [...] CDT Chato Ferguson P.A.-C. LAB BLOOD ADD-ON [facility] [address] [place] [address], [facility] CNFL [facility] in [address] [address] * Troponin T, Baseline, 5th gen (10/08/2022 9:24 PM CDT) Troponin T, Baseline, 5th gen 7 <=10 ng/L 10/08/2022 9:47 PM CDT CNFL Blood (Blood, Venous) 10/08/2022 9:24 PM CDT 10/08/2022 9:26 PM CDT Chato Ferguson P.A.-C. LAB BLOOD TROPONIN [facility] [address] [place] [address], [facility] CNFL [facility] [place] [address] * (ABNORMAL) Comprehensive Metabolic Panel (10/08/2022 9:24 [...] CDT Chato Ferguson P.A.-C. LAB BLOOD ADD-ON [facility] [address] [place] [address], [facility] CNFL [facility] [place] [address] * (ABNORMAL) CBC with Differential, Blood (10/08/2022 [...] P.A.-C. LAB BLOOD ADD-ON Performing Organization Address City/State/[facility] Co de Phone Number [facility] [address] [place] [address], [facility] in [address] [address] * ECG 12 Lead (10/08/2022 9:17 PM CDT) Ventricular Rate ECG/Min 72 BPM MUSE ME Interval 114 ms MUSE QRSD Interval 82 ms MUSE QT Interval 382 ms MUSE QTC Interval 418 ms MUSE P Eighty Four -6 degrees MUSE R Eighty Four 59 degrees MUSE T Wave Eighty Four 14 degrees MUSE 10/08/2022 9:17 PM CDT 10/09/2022 9:22 AM CDT Impressions MUSE - 10/08/2022 9:19 PM CDT Normal sinus rhythm with short ME Nonspecific T wave abnormality No previous ECGs available Reviewed by Rome Hargrove III, CRAT Narrative Procedure Note Jn Chun M.D. - 10/09/2022 IMPRESSION: Normal sinus rhythm with short ME Nonspecific T wave abnormality No previous ECGs [...] discontinued) documented in this encounter Care Teams Shore Working Supervisor Relationship Specialty Start Date End Date Elsewhere, Pcp PCP - General Internal Medicine 10/08/22 documented as of this encounter
--- OUTSIDE RECORDS SUMMARY | 2023-06-05 08:48 | XMS_ITS | Referral Summary ---
Author Name Unknown Organization [facility] Address [address] [place] [address] Care Team Providers Care Buck Swamper Name Role Phone Elsewhere, Pcp Primary Care Provider Unavailabl e Source Comments Patient records contain information from all sites at [facility]. For routine questions regarding patient records, call [phone] during business hours, M-F 8:00 AM - 5:00 PM Central Time. Record requests for emergency care only can be directed to [phone] at any time.[facility] Allergies No known active allergies Medications [...] of Treatment Not on file Care Teams Buck Swamper Relationship Specialty Start Date End Date Elsewhere, Pcp PCP - General Internal Medicine 10/08/22
--- OUTSIDE RECORDS SUMMARY | 2023-06-05 08:48 | XMS_ITS | Clinical Summary ---
Author Name Unknown Organization [facility] Address [address] [place] [address] Care Team Providers Care Plastics Tooling Engineer Name Role Phone Robel Shah MD Unavailable Herbert Gaitan MD Primary Care Provider [phone] [phone] Allergies Active Allergy Reactions Criticality Noted Date Comments Fish Oil 04/30/2020 Other reaction(s): itching Medications Medication Sig Dispensed Refills Start Date End Date Status Zzluednxvn-DRIC-Vjqgm ine 50-300-40 MG CAPS Take 1 capsule [...] age to complete this topic Care Teams Plastics Tooling Engineer Relationship Specialty Start Date End Date Herbert Gaitan MD [address] [address] PCP - General Family Medicine 08/06/20 Robel Shah MD [address] [facility] 200 [place], [place] [id number] Neurology 08/06/20
--- OUTSIDE RECORDS SUMMARY | 2023-06-05 08:48 | XMS_ITS | Patient Health Record ---
Author Name Unknown Organization [facility] Address [address] [facility] 35 [place], [place] [id number] Care Team Providers Care Textile Screen Printer Name Role Phone Herbert Gaitan MD Primary [...] Code Notes Problem Palpitations (R00.2) Active confirmed 31690064 Problem Depression, major, recurrent, mild (F33.0) Active confirmed 886846108 Problem Tobacco abuse (Z72.0) Active confirmed 105263351 Problem Exercise-induced asthma (J45.990) Active confirmed 19884510 Problem Major depressive disorder, single episode in full remission (F32.5) Active confirmed 19650062 Problem Anisocoria (H57.02) Active confirmed 75394973 Problem Unspecified asthma, uncomplicated (J45.909) Active confirmed Uncomplicated asthma (disorder) (030359568) Problem Abnormal vaginal bleeding (N93.9) Active confirmed 081713141 Problem GENNA (generalized anxiety disorder) (F41.1) Active confirmed 78898285 Problem Mild intermittent asthma without complication (J45.20) Active confirmed 414251084 Problem intermodal dispatcher current use of inhaled steroid (Z79.51) Active confirmed Long-term current use of inhaled steroid (697076533) VITAL SIGNS Blood pressure diastolic 72 mm Hg 06/19/2022 Oximetry 99% 06/19/2022 Height 69.5 in 06/19/2022 Blood pressure systolic 134 mm Hg 06/19/2022 Weight 216.4 lbs 06/19/2022 BMI 31.5 kg/m2 06/19/2022 Encounters Encounter Location Date Provider Diagnosis [facility] [address] [facility] [place] [id number] 06/19/2022 Herbert Gaitan Tobacco abuse Z72.0 [facility] [address] [place], [place] [id number] 06/20/2022 Herbert Gaitan [facility] [address] [place], [place] [id number] 08/13/2022 Herbert [facility] [address] [facility], [place] [id number] 05/18/2023 Herbert Gaitan [facility] [address] [place], [place] [id number] 01/13/2023 [facility] [address] [place], [place] [id number] 01/13/2023 Herbert Gaitan [facility] [address] [facility], [place] [id number] 12/18/2022 Herbert Gaitan [facility] [address] [facility], [place] [id number] 01/14/2023 Herbert Gaitan [facility] [address] [facility], [place] [id number] 02/20/2023 Herbert Gaitan [facility] [address] [facility], [place] [id number] 06/19/2022 Herbert Gaitan Adult general medical exam [...] with this also. We will have the customer care team coach call in 6 weeks. 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
--- OUTSIDE RECORDS SUMMARY | 2023-06-05 08:48 | XMS_ITS ---
Author Name Unknown Organization [facility] Address [address] [place] [address] Care Team Providers Care Loader Unloader Name Role Phone Unavailable Unavailable Unavailable Surgery Details Not on file Complications Check Surgery Details section. Procedure Estimated Blood Loss Check Surgery Details section. Procedure Findings Check Surgery Details section. Procedure Specimens Taken Check Surgery Details section.
--- OUTSIDE RECORDS SUMMARY | 2023-06-05 08:48 | XMS_ITS | Referral Summary ---
Author Name Unknown Organization [facility] Address [address] [place] [address] Care Team Providers Care Kiln Firer Name Role Phone Robel Shah MD Unavailable Herbert Gaitan MD Primary Care Provider [phone] [phone] Allergies Active Allergy Reactions Criticality Noted Date Comments Fish Oil 04/30/2020 Other reaction(s): itching Medications Medication Sig Dispensed Refills Start Date End Date Status Omadchbwuf-VEUH-Maidf ine 50-300-40 MG CAPS Take 1 capsule [...] of Treatment Not on file Care Teams Kiln Firer Relationship Specialty Start Date End Date Herbert Gaitan MD [address] [place] [address] PCP - General Family Medicine 08/06/20 Robel Shah MD [address] [place] [address] [place] [address] Neurology 08/06/20
== END 2023-06-05 08:41 | disposition home or self-care (01) ==
LOC: MAMMO 08:41
PROVIDERS: PCP Physician Assistant Medical; Visit Provider Physician Assistant Medical
DX: Z12.31 Encounter for screening mammogram for malignant neoplasm of breast (principal); N63.10 Unspecified lump in the right breast, unspecified quadrant
CPT/HCPCS: 77063; 77067

== ENCOUNTER 2023-06-09 07:14 | Outpatient (CLI) | payer OTHER, SELFPAY ==
--- OUTSIDE RECORDS SUMMARY | 2023-06-09 07:16 | XMS_ITS ---
Author Name Unknown Organization [facility] Address [address] [place] [address] Care Team Providers Care Shore Man Name Role Phone Unavailable Unavailable Unavailable Surgery Details Not on file Complications Check Surgery Details section. Procedure Estimated Blood Loss Check Surgery Details section. Procedure Findings Check Surgery Details section. Procedure Specimens Taken Check Surgery Details section.
--- OUTSIDE RECORDS SUMMARY | 2023-06-09 07:16 | XMS_ITS | Referral Summary ---
Author Name Unknown Organization [facility] Address [address] [place] [address] Care Team Providers Care Flight Operations Specialist Name Role Phone Elsewhere, Pcp Primary Care Provider Unavailabl e Source Comments Patient records contain information from all sites at [facility]. For routine questions regarding patient records, call [phone] during business hours, M-F 8:00 AM - 5:00 PM Central Time. Record requests for emergency care only can be directed to [phone] at any time.[facility] Allergies No known active allergies Medications Medication [...] of Treatment Not on file Care Teams Flight Operations Specialist Relationship Specialty Start Date End Date Elsewhere, Pcp PCP - General Internal Medicine 10/08/22
--- OUTSIDE RECORDS SUMMARY | 2023-06-09 07:16 | XMS_ITS | Encounter Summary ---
Author Name Unknown Organization [facility] Address [address] [place] [address] Care Team Providers Care Lockstitch Tunnel Elastic Operator Name Role Phone Elsewhere, Pcp Primary Care Provider Unavailabl e Reason for Referral * Outpatient (Routine) - Authorized Specialty Diagnoses / Procedures Referred By Naveen gilliam Referred To Contact Emergency Medicine Diagnoses Strain Back Muscle Initial Palpitations Anemia Chato Ferguson P.A.-C. [address] [place] [phone] [facility] Referral ID Status Reason Start Date Expiration Date V isits Requested Visits Authorized [id number] Authorized 10/08/2022 10/07/2025 1 1 Reason for [...] CDT - 10/08/2022 11:51 PM CDT Emergency [facility] [address] [place] [phone] Chato Ferguson P.A.-C. [address] [place] [phone] Strain Back Muscle Initial (Primary Dx); Palpitations; [...] in 12 hours. Obtain additional Lidocaine patches ndwi-xbq-fshtghz that last 8 hours. Rotating Ice and [...] sent through Care Everywhere. * Muscle Strain Dnmq-hx-Kmnv ([place]) * Palpitations Rnhd-nj-Ttsy ([place]) * Iron Deficiency Anemia ([place]) documented in this encounter Medications at Time [...] is a 47 y.o. female presents to [facility] requesting evaluationfor back pain. Presents [...] had similar symptoms which she had an [place]. No cough. No hemoptysis. No recent illness. No trauma or falls. No diaphoresis, nausea, vomiting, abdominal pain. No lower extremity edema. No history DVT or PE. No recent surgery or prolonged immobilization. History provided by: Patient and medical records auxiliary operator needed/used: no REVIEW OF SYSTEMS Constitutional: Negative [...] follow-up in around 2 weeks. Recommend conservative xqmf-dbi-cphfqky therapy including Tylenol, ibuprofen, rotating heat nice, [...] PM CDT 10/08/2022 11:17 PM CDT Narrative [facility] - 10/08/2022 11:38 PM CDT Specimen Information: Specimen ID: [id number] Specimen Type: Blood Specimen Collection Start Date: 10/08/2022 11:14 PM Specimen Received Date: 10/08/2022 11:17 PM Specimen ID: [id number] Specimen Type: Blood Chato Ferguson P.A.-C. LAB BLOOD TROPONIN [facility] [address] [place] [address], [facility] in [address] [address] * DX Chest Portable 1 View (10/08/2022 [...] Ferguson P.A.-C. LAB BLOOD ADD-ON [facility] [address] [place] [address], [facility] CNFL [facility] in [address] [address] * Troponin T, Baseline, 5th gen (10/08/2022 9:24 PM CDT) Troponin T, Baseline, 5th gen 7 <=10 ng/L 10/08/2022 9:47 PM CDT CNFL Blood (Blood, Venous) 10/08/2022 9:24 PM CDT 10/08/2022 9:26 PM CDT Chato Ferguson P.A.-C. LAB BLOOD TROPONIN [facility] [address] [place] [address], [facility] CNFL [facility] [place] [address] * (ABNORMAL) Comprehensive Metabolic Panel (10/08/2022 9:24 [...] Ferguson P.A.-C. LAB BLOOD ADD-ON [facility] [address] [place] [address], [facility] CNFL [facility] [place] [address] * (ABNORMAL) CBC with Differential, Blood (10/08/2022 [...] P.A.-C. LAB BLOOD ADD-ON Performing Organization Address City/State/[facility] Co de Phone Number [facility] [address] [place] [address], [facility] in [address] [address] * ECG 12 Lead (10/08/2022 9:17 PM CDT) Ventricular Rate ECG/Min 72 BPM MUSE ID Interval 114 ms MUSE QRSD Interval 82 ms MUSE QT Interval 382 ms MUSE QTC Interval 418 ms MUSE P [place] -6 degrees MUSE R [place] 59 degrees MUSE T Wave [place] 14 degrees MUSE 10/08/2022 9:17 PM CDT 10/09/2022 9:22 AM CDT Impressions MUSE - 10/08/2022 9:19 PM CDT Normal sinus rhythm with short ID Nonspecific T wave abnormality No previous ECGs available Reviewed by Rome Hargrove III, CRAT Narrative Procedure Note Jn Chun M.D. - 10/09/2022 IMPRESSION: Normal sinus rhythm with short ID Nonspecific T wave abnormality No previous ECGs [...] discontinued) documented in this encounter Care Teams Lockstitch Tunnel Elastic Operator Relationship Specialty Start Date End Date Elsewhere, Pcp PCP - General Internal Medicine 10/08/22 documented as of this encounter
--- OUTSIDE RECORDS SUMMARY | 2023-06-09 07:16 | XMS_ITS | Clinical Summary ---
Author Name Unknown Organization [facility] Address [address] [place] [address] Care Team Providers Care Documentation Consultant Name Role Phone Elsewhere, Pcp Primary Care Provider Unavailabl e Source Comments Patient records contain information from all sites at [facility]. For routine questions regarding patient records, call [phone] during business hours, M-F 8:00 AM - 5:00 PM Central Time. Record requests for emergency care only can be directed to [phone] at any time.[facility] Allergies No [...] Glucose for Diabetes Screening 10/08/2025 Care Teams Documentation Consultant Relationship Specialty Start Date End Date Elsewhere, Pcp PCP - General Internal Medicine 10/08/22
--- OUTSIDE RECORDS SUMMARY | 2023-06-09 07:16 | XMS_ITS | Clinical Summary ---
Author Name Unknown Organization [facility] Address [address] [place] [address] Care Team Providers Care Stained Glass Joiner Name Role Phone Robel Shah MD Unavailable Herbert Gaitan MD Primary Care Provider [phone] [phone] Allergies Active Allergy Reactions Criticality Noted Date Comments Fish Oil 04/30/2020 Other reaction(s): itching Medications Medication Sig Dispensed Refills Start Date End Date Status Ixmeczkmdc-CWFW-Nyacj ine 50-300-40 MG CAPS Take 1 capsule [...] age to complete this topic Care Teams Stained Glass Joiner Relationship Specialty Start Date End Date Herbert Gaitan MD [address] [place] [address] PCP - General Family Medicine 08/06/20 Robel Shah MD [address] [facility] [address] [place], [place] [phone] Neurology 08/06/20
--- OUTSIDE RECORDS SUMMARY | 2023-06-09 07:17 | XMS_ITS | Referral Summary ---
Author Name Unknown Organization [facility] Address [address] [place] [address] Care Team Providers Care Senior Asic Design Engineer Name Role Phone Robel Shah MD Unavailable Herbert Gaitan MD Primary Care Provider [phone] [phone] Allergies Active Allergy Reactions Criticality Noted Date Comments Fish Oil 04/30/2020 Other reaction(s): itching Medications Medication Sig Dispensed Refills Start Date End Date Status Qypijwprrq-NPEF-Omaze ine 50-300-40 MG CAPS Take 1 capsule [...] Treatment Not on file Care Teams Senior Asic Design Engineer Relationship Specialty Start Date End Date Herbert Gaitan MD [address] [place] [address] PCP - General Family Medicine 08/06/20 Robel Sahh MD [address] [place] [address] Neurology 08/06/20
--- OUTSIDE RECORDS SUMMARY | 2023-06-09 07:17 | XMS_ITS | Patient Health Record ---
Author Name Unknown Organization [facility] Address [address] [facility] [address] [place], [place] [id number] Care Team Providers Care Junior Net Developer Name Role Phone Herbert Gaitan MD Primary [...] Code Notes Problem Palpitations (R00.2) Active confirmed 06519077 Problem Depression, major, recurrent, mild (F33.0) Active confirmed 043190702 Problem Tobacco abuse (Z72.0) Active confirmed 642335079 Problem Exercise-induced asthma (J45.990) Active confirmed 52395647 Problem Major depressive disorder, single episode in full remission (F32.5) Active confirmed 98052535 Problem Anisocoria (H57.02) Active confirmed 20915168 Problem Unspecified asthma, uncomplicated (J45.909) Active confirmed Uncomplicated asthma (disorder) (899778782) Problem Abnormal vaginal bleeding (N93.9) Active confirmed 996796804 Problem GENNA (generalized anxiety disorder) (F41.1) Active confirmed 18278877 Problem Mild intermittent asthma without complication (J45.20) Active confirmed 518694239 Problem termite exterminator helper current use of inhaled steroid (Z79.51) Active confirmed Long-term current use of inhaled steroid (738140602) VITAL SIGNS Blood pressure diastolic 72 mm Hg 06/19/2022 Oximetry 99% 06/19/2022 Height 69.5 in 06/19/2022 Blood pressure systolic 134 mm Hg 06/19/2022 Weight 216.4 lbs 06/19/2022 BMI 31.5 kg/m2 06/19/2022 Encounters Encounter Location Date Provider Diagnosis [facility] [address] [facility] [id number] 06/19/2022 Herbert Gaitan Tobacco abuse Z72.0 [facility] [address] [place], [place] [id number] 06/20/2022 Herbert Gaitan [facility] [address] [place], [place] [id number] 08/13/2022 Herbert [facility] [address] [facility], [place] [id number] 05/18/2023 Herbert Gaitan [facility] [address] [place], [place] [id number] 01/13/2023 [facility] [address] [place], [place] [id number] 01/13/2023 Herbert Gaitan [facility] [address] [facility], [place] [id number] 12/18/2022 Herbert Gaitan [facility] [address] [facility], [place] [id number] 01/14/2023 Herbert Gaitan [facility] [address] [facility], [place] [id number] 02/20/2023 Herbert Gaitan [facility] [address] [facility], [place] [id number] 06/19/2022 Herbert Gaitan Adult general medical exam [...] with this also. We will have the medicare contact specialist call in 6 weeks. 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
--- NOTE | 2023-06-09 08:26 | W.ANESCHARGE ---
Anesthesia Charges Start Date/Time Anesthesia Start Date: 06/09/23 Anesthesia Start Time: 07:50 Stop Date/Time Anesthesia Stop Date: 06/09/23 Anesthesia Stop Time: 08:24
--- NOTE | 2023-06-09 09:18 | W.ANESCHARGE ---
Anesthesia Charges Start Date/Time Anesthesia Start Date: 06/09/23 Anesthesia Start Time: 07:50 Stop Date/Time Anesthesia Stop Date: 06/09/23 Anesthesia Stop Time: 08:24
== END 2023-06-09 07:15 | disposition home or self-care (01) ==
LOC: OP CLINIC 07:14
PROVIDERS: PCP Physician Assistant Medical; Visit Provider Surgery
DX: Z12.11 Encounter for screening for malignant neoplasm of colon (principal); K63.5 Polyp of colon; K62.1 Rectal polyp
CPT/HCPCS: 00811; 45385; 88305; J2704

== ENCOUNTER 2023-06-17 10:37 | Outpatient (CLI) | payer OTHER, SELFPAY ==
--- NOTE | 2023-06-17 10:45 | CRLHL7_ITS ---
For Patients: As a result of the Century Cures Act, medical imaging exams and procedure reports are released immediately into your electronic medical record. You may view this report before your referring provider. If you have questions, please contact your health care provider. CLINICAL HISTORY: RIGHT breast mass/asymmetry. COMPARISON: 06/05/2023 TECHNIQUE: Digital RIGHT mammogram in 2 projections. Real-time ultrasound imaging of RIGHT breast with imaging documentation. Scanning was performed by both the technologist and the radiologist. BREAST COMPOSITION: Scattered fibroglandular densities. FINDINGS: 3D spot-compression CC/MLO right breast mammogram images submitted. Decreased conspicuity of the previously noted asymmetric density. No architectural distortion. Targeted right breast ultrasound performed at 10 o`clock 7 cm from the nipple. Mild fibrocystic changes are present along with normal dense fibroglandular tissue. No suspicious findings. IMPRESSION: No evidence of malignancy. RECOMMENDATIONS: Annual bilateral screening mammography. BI-RADS: 2. Benign. Results and recommendations discussed with the patient. Dictated by Albaro Brewer MD @ 06/17/2023 11:57:04 AM (Electronically Signed)
--- OUTSIDE RECORDS SUMMARY | 2023-06-17 10:51 | XMS_ITS | Clinical Summary ---
Author Name Unknown Organization [facility] Address [address] [place] [address] Care Team Providers Care Head Of Academic Technology Name Role Phone Robel Shah MD Unavailable Herbert Gaitan MD Primary Care Provider [phone] Allergies Active Allergy Reactions Criticality Noted Date Comments Fish Oil 04/30/2020 Other reaction(s): itching Medications Medication Sig Dispensed Refills Start Date End Date Status Ommgncuaaa-RALB-Cerdo ine 50-300-40 MG CAPS Take 1 capsule [...] age to complete this topic Care Teams Head Of Academic Technology Relationship Specialty Start Date End Date Herbert Gaitan MD [address] [place] [address] PCP - General Family Medicine 08/06/20 Robel Shah MD [address] [facility] [address] [place], [place] [id number] Neurology 08/06/20
--- OUTSIDE RECORDS SUMMARY | 2023-06-17 10:51 | XMS_ITS ---
Author Name Unknown Organization [facility] Address [address] [place] [address] Care Team Providers Care Cash Sales Audit Clerk Name Role Phone Unavailable Unavailable Unavailable Surgery Details Not on file Complications Check Surgery Details section. Procedure Estimated Blood Loss Check Surgery Details section. Procedure Findings Check Surgery Details section. Procedure Specimens Taken Check Surgery Details section.
--- OUTSIDE RECORDS SUMMARY | 2023-06-17 10:51 | XMS_ITS | Referral Summary ---
Author Name Unknown Organization [facility] Address [address] [place] [address] Care Team Providers Care Computer Network Support Specialist Name Role Phone Elsewhere, Pcp Primary Care Provider Unavailabl e Source Comments Patient records contain information from all sites at [facility]. For routine questions regarding patient records, call [phone] during business hours, M-F 8:00 AM - 5:00 PM Central Time. Record requests for emergency care only can be directed to [phone] at any time.[facility] Allergies No known active allergies Medications Medication [...] of Treatment Not on file Care Teams Computer Network Support Specialist Relationship Specialty Start Date End Date Elsewhere, Pcp PCP - General Internal Medicine 10/08/22
--- OUTSIDE RECORDS SUMMARY | 2023-06-17 10:51 | XMS_ITS | Patient Health Record ---
Author Name Unknown Organization [facility] Address [address] [facility] [address] [place], [place] [id number] Care Team Providers Care Agricultural Engineering Technicians Name Role Phone Herbert Gaitan MD Primary Care Provider [phone] ALLERGIES Allergen (clinical drug ingredient) Drug/Non Drug [...] Code Notes Problem Palpitations (R00.2) Active confirmed 79037628 Problem Depression, major, recurrent, mild (F33.0) Active confirmed 090406764 Problem Tobacco abuse (Z72.0) Active confirmed 865334597 Problem Exercise-induced asthma (J45.990) Active confirmed 76197762 Problem Major depressive disorder, single episode in full remission (F32.5) Active confirmed 26868111 Problem Anisocoria (H57.02) Active confirmed 48954446 Problem Unspecified asthma, uncomplicated (J45.909) Active confirmed Uncomplicated asthma (disorder) (318217724) Problem Abnormal vaginal bleeding (N93.9) Active confirmed 067128808 Problem GENNA (generalized anxiety disorder) (F41.1) Active confirmed 45165795 Problem Mild intermittent asthma without complication (J45.20) Active confirmed 250562936 Problem 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) Active confirmed Long-term current use of inhaled steroid (592883389) VITAL SIGNS Blood pressure diastolic 72 mm Hg 06/19/2022 Oximetry 99% 06/19/2022 Height 69.5 in 06/19/2022 Blood pressure systolic 134 mm Hg 06/19/2022 Weight 216.4 lbs 06/19/2022 BMI 31.5 kg/m2 06/19/2022 Encounters Encounter Location Date Provider Diagnosis [facility] [address] [facility] [phone] 06/19/2022 Herbert Gaitan Tobacco abuse Z72.0 [facility] [address] [place], [place] [id number] 06/20/2022 Herbert Gaitan [facility] [address] [place], [place] [phone] 08/13/2022 Herbert [facility] [address] [facility] [place] [phone] 05/18/2023 Herbert Gaitan [facility] [address] [place], [place] [id number] 01/13/2023 [facility] [place] [facility] [address] [place], [place] [id number] 01/13/2023 Herbert Gaitan [facility] [address] [facility] [place] [phone] 12/18/2022 Herbert Gaitan [facility] [address] [facility] [place] [phone] 01/14/2023 Herbert Gaitan [facility] [address] [facility] [id number] 02/20/2023 Herbert Gaitan [facility] [address] [facility] [phone] 06/19/2022 Herbert Gaitan Adult general medical exam [...] with this also. We will have the farm or ranch animal caretaker call in 6 weeks. 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
--- OUTSIDE RECORDS SUMMARY | 2023-06-17 10:51 | XMS_ITS | Encounter Summary ---
Author Name Unknown Organization [facility] Address [address] [place] [address] Care Team Providers Care Purse Seiner Name Role Phone Elsewhere, Pcp Primary Care Provider Unavailabl e Reason for Referral * Outpatient (Routine) - Authorized Specialty Diagnoses / Procedures Referred By Naveen gilliam Referred To Contact Emergency Medicine Diagnoses Strain Back Muscle Initial Palpitations Anemia Chato Ferguson P.A.-C. [address] [place] [phone] [facility] Referral ID Status Reason Start Date Expiration Date V isits Requested Visits Authorized [id number] Authorized 10/08/2022 10/07/2025 1 1 Reason for [...] CDT - 10/08/2022 11:51 PM CDT Emergency [facility] [address] [place] [phone] Chato Ferguson P.A.-C. [address] [place] [phone] Strain Back Muscle Initial (Primary Dx); Palpitations; [...] in 12 hours. Obtain additional Lidocaine patches cndt-osu-fdzrkex that last 8 hours. Rotating Ice and [...] sent through Care Everywhere. * Muscle Strain Kzsz-ym-Xfzg (Guamanian) * Palpitations Pumh-px-Ynme (Guamanian) * Iron Deficiency Anemia (Guamanian) documented in this encounter Medications at Time [...] is a 47 y.o. female presents to [facility] requesting evaluationfor back pain. Presents [...] had similar symptoms which she had an IL. No cough. No hemoptysis. No recent illness. No trauma or falls. No diaphoresis, nausea, vomiting, abdominal pain. No lower extremity edema. No history DVT or PE. No recent surgery or prolonged immobilization. 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 Recommend conservative ncap-hbx-ugjposv therapy including Tylenol, ibuprofen, rotating heat nice, [...] PM CDT 10/08/2022 11:17 PM CDT Narrative [facility] - 10/08/2022 11:38 PM CDT Specimen Information: Specimen ID: [id number] Specimen Type: Blood Specimen Collection Start Date: 10/08/2022 11:14 PM Specimen Received Date: 10/08/2022 11:17 PM Specimen ID: [id number] Specimen Type: Blood Chato Ferguson P.A.-C. LAB BLOOD TROPONIN [facility] [address] [place] [address], [facility] in [address] [address] * DX Chest Portable 1 View (10/08/2022 [...] CDT Chato Ferguson P.A.-C. LAB BLOOD ADD-ON [facility] [address] [place] [address], [facility] CNFL [facility] in [address] [address] * Troponin T, Baseline, 5th gen (10/08/2022 9:24 PM CDT) Troponin T, Baseline, 5th gen 7 <=10 ng/L 10/08/2022 9:47 PM CDT CNFL Blood (Blood, Venous) 10/08/2022 9:24 PM CDT 10/08/2022 9:26 PM CDT Chato Ferguson P.A.-C. LAB BLOOD TROPONIN [facility] [address] [place] [address], [facility] CNFL [place] [address] * (ABNORMAL) Comprehensive Metabolic Panel (10/08/2022 9:24 [...] PM CDT 10/08/2022 9:26 PM CDT Chato Ferugson P.A.-C. LAB BLOOD ADD-ON [facility] [address] [place] [address], [facility] CNFL [place] [address] * (ABNORMAL) CBC with Differential, Blood (10/08/2022 [...] P.A.-C. LAB BLOOD ADD-ON Performing Organization Address City/State/[facility] Co de Phone Number [facility] [address] [place] [address], [facility] in [address] [address] * ECG 12 Lead (10/08/2022 9:17 PM CDT) Ventricular Rate ECG/Min 72 BPM MUSE WY Interval 114 ms MUSE QRSD Interval 82 ms MUSE QT Interval 382 ms MUSE QTC Interval 418 ms MUSE P Brandon -6 degrees MUSE R Brandon 59 degrees MUSE T Wave Brandon 14 degrees MUSE 10/08/2022 9:17 PM CDT 10/09/2022 9:22 AM CDT Impressions MUSE - 10/08/2022 9:19 PM CDT Normal sinus rhythm with short WY Nonspecific T wave abnormality No previous ECGs available Reviewed by Rome Hargrove III, CRAT Narrative Procedure Note Jn Chun M.D. - 10/09/2022 IMPRESSION: Normal sinus rhythm with short WY Nonspecific T wave abnormality No previous ECGs [...] discontinued) documented in this encounter Care Teams Purse Seiner Relationship Specialty Start Date End Date Elsewhere, Pcp PCP - General Internal Medicine 10/08/22 documented as of this encounter
--- OUTSIDE RECORDS SUMMARY | 2023-06-17 10:51 | XMS_ITS | Clinical Summary ---
Author Name Unknown Organization [facility] Address [address] [place] [address] Care Team Providers Care Medical Diagnostic Radiographer Name Role Phone Elsewhere, Pcp Primary Care Provider Unavailabl e Source Comments Patient records contain information from all sites at [facility]. For routine questions regarding patient records, call [phone] during business hours, M-F 8:00 AM - 5:00 PM Central Time. Record requests for emergency care only can be directed to [phone] at any time.[facility] Allergies No known active allergies [...] Glucose for Diabetes Screening 10/08/2025 Care Teams Medical Diagnostic Radiographer Relationship Specialty Start Date End Date Elsewhere, Pcp PCP - General Internal Medicine 10/08/22
--- OUTSIDE RECORDS SUMMARY | 2023-06-17 10:51 | XMS_ITS | Referral Summary ---
Author Name Unknown Organization [facility] Address [address] [place] [address] Care Team Providers Care Microgrinder Operator Name Role Phone Robel Shah MD Unavailable Herbert Gaitan MD Primary Care Provider [phone] Allergies Active Allergy Reactions Criticality Noted Date Comments Fish Oil 04/30/2020 Other reaction(s): itching Medications Medication Sig Dispensed Refills Start Date End Date Status Rqayglxymb-HWEP-Yayjy ine 50-300-40 MG CAPS Take 1 capsule [...] of Treatment Not on file Care Teams Microgrinder Operator Relationship Specialty Start Date End Date Herbert Gaitan MD [address] [place] [address] PCP - General Family Medicine 08/06/20 Robel Shah MD [address] [place] [address] [place] [address] Neurology 08/06/20
--- NOTE | 2023-06-17 11:15 | CRLHL7_ITS ---
For Patients: As a result of the Century Cures Act, medical imaging exams and procedure reports are released immediately into your electronic medical record. You may view this report before your referring provider. If you have questions, please contact your health care provider. PLEASE SEE RIGHT DIAGNOSTIC MAMMOGRAM OF SAME DAY FOR COMBINED REPORT. CRL:[email or web address] RD/Dictated by: Albaro Brewer MD @ 06/17/2023 11:57:00 AM (Electronically Signed)
== END 2023-06-17 10:38 | disposition home or self-care (01) ==
LOC: MAMMO 10:37
PROVIDERS: PCP Physician Assistant Medical; Visit Provider Physician Assistant Medical
DX: N63.10 Unspecified lump in the right breast, unspecified quadrant (principal); R92.8 Other abnormal and inconclusive findings on diagnostic imaging of breast
CPT/HCPCS: 76642; 77065; G0279

== ENCOUNTER 2024-12-01 08:10 | Outpatient (CLI) | payer OTHER, SELFPAY | END 2024-12-01 08:11 | disposition home or self-care (01) | LOC: NFLDREF 12-02 08:05 | PROVIDERS: PCP Physician Assistant Medical; Referring Provider Physician Assistant Medical; Visit Provider Physician Assistant Medical | DX: Z00.00 Encounter for general adult medical examination without abnormal findings (principal); N92.1 Excessive and frequent menstruation with irregular cycle; D50.0 Iron deficiency anemia secondary to blood loss (chronic); M54.2 Cervicalgia; G89.29 Other chronic pain; R53.83 Other fatigue; Z13.21 Encounter for screening for nutritional disorder; Z13.6 Encounter for screening for cardiovascular disorders | CPT/HCPCS: 80053; 80061; 82306; 82607; 82728; 83540; 83550; 84443 ==

== ENCOUNTER 2024-12-13 19:06 | Outpatient (CLI) | payer OTHER, SELFPAY ==
[2024-12-15 17:56] LABS: HPV Source Cervix
[2024-12-18 15:40] LABS: Pap Test Digital Imaging Done
== END 2024-12-13 19:07 | disposition home or self-care (01) ==
PROVIDERS: PCP Physician Assistant Medical; Visit Provider Registered Nurse
DX: Z12.4 Encounter for screening for malignant neoplasm of cervix (principal); Z11.51 Encounter for screening for human papillomavirus (HPV)
CPT/HCPCS: 87624; 87625; 88141; 88142; 88175

== ENCOUNTER 2024-12-20 10:31 | Outpatient (CLI) | payer OTHER, SELFPAY ==
--- NOTE | 2024-12-20 10:45 | CRLHL7_ITS ---
For Patients: As a result of the Century Cures Act, medical imaging exams and procedure reports are released immediately into your electronic medical record. You may view this report before your referring provider. If you have questions, please contact your health care provider. INDICATION: excessive and frequent menstruation COMPARISON: 05/21/2023 TECHNIQUE: 2D zhao-scale and color Doppler images were acquired of the pelvis using a transabdominal and transvaginal approach. Transvaginal imaging performed to better visualize the endometrial stripe and ovaries. FINDINGS: Sonographic images demonstrate a normal size and smooth outer contour of the uterus. Uterus measures 10.5 cm in length by 6.0 cm in AP diameter by 5.7 cm in transverse dimension. The myometrium has a mildly heterogeneous echotexture. The endometrial lining measures 8.8 mm in composite thickness. The right ovary measures 2.3 x 1.9 x 1.8 cm in size and the left ovary measures 3.3 x 1.6 x 2.3 cm. The ovaries demonstrate normal arterial and venous blood flow on color Doppler analysis. There are no suspicious fluid collections within the cul-de-sac. IMPRESSION: Endometrial thickness 8.8 millimeters. No endometrial fluid. Dictated by Albaro Brewer MD @ 12/20/2024 11:44:03 AM (Electronically Signed)
== END 2024-12-20 10:32 | disposition home or self-care (01) ==
PROVIDERS: PCP Physician Assistant Medical; Visit Provider Registered Nurse
DX: N92.1 Excessive and frequent menstruation with irregular cycle (principal); R93.89 Abnormal findings on diagnostic imaging of other specified body structures; Z13.31 Encounter for screening for depression
CPT/HCPCS: 76830; 76856

== ENCOUNTER 2024-12-20 10:33 | Outpatient (CLI) | payer OTHER, SELFPAY ==
--- NOTE | 2024-12-20 11:30 | CRLHL7_ITS ---
For Patients: As a result of the Century Cures Act, medical imaging exams and procedure reports are released immediately into your electronic medical record. You may view this report before your referring provider. If you have questions, please contact your health care provider. INDICATION: BILATERAL SCREENING MAMMOGRAM, ASYMPTOMATIC 49 Y/O FEMALE COMPARISON: 06/17/2023, 06/05/2023 TECHNIQUE: Digital mammogram in CC and MLO projections including computer-aided detection (CAD) and tomosynthesis. BREAST COMPOSITION: There are scattered areas of fibroglandular density. FINDINGS: No suspicious findings. ASSESSMENT: BI-RADS 1 Negative RECOMMENDATION: Annual screening mammogram. A lay language report of this examination will be provided to the patient. Dictated by: Albaro Brewer MD @ 12/20/2024 12:14:34 (Electronically Signed)
== END 2024-12-20 10:34 | disposition home or self-care (01) ==
LOC: MAMMO 10:33
PROVIDERS: PCP Physician Assistant Medical; Visit Provider Physician Assistant Medical
DX: Z12.31 Encounter for screening mammogram for malignant neoplasm of breast (principal)
CPT/HCPCS: 77063; 77067